=== PATIENT | female | born 1945 | race Caucasian/White ===

== ENCOUNTER 2024-08-07 08:49 | Outpatient (OUT) | payer MEDICARE, OTHER, SELFPAY ==
--- NOTE | 2024-08-07 09:00 | RT_ITS ---
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 Findings were considered accurate and reproducible. Both pre- and post-bronchodilator values utilized for spirometry. Spirometry (based on pre-bronchodilator values): -FEV1/FVC: Normal @ 90% -FEV1: Normal @ 92% -FVC: Mildly reduced @ 76% -There is no significant bronchodilator response. Lung volumes by plethysmography: -RV: Reduced @ 53% -TLC: Moderately reduced @ 67% Diffusion capacity: -DLCO: Moderate reduction @ 62% when corrected for Hb 14.4g/dL Impressions: -Mild restrictive pattern in spirometry, confirmed with moderate reduction of TLC. Moderate diffusion impairment. Overall study is compatible with pulmonary fibrosis. Clinical correlation required. Electronically Signed On 08-07-2024 17:52:58 EDT by Fam Fulton
[2024-08-07 09:05] LABS: Hemoglobin 14.4 g/dL (12.0-16.0)
[2024-08-07] MEDS: ALBUTEROL SULFATE 2.5 MG/3 ML VIAL NEB IH (09:22)
--- NOTE | 2024-08-07 09:50 | CT_ITS ---
The [address] [address] Patient Name: JAVID HERRERA MRN: [id number] date: 1945 Sex: F Assigned Patient Location: CARD Current Patient Location: CARD Accession/Order Number: [id number] Exam Date: 08/07/2024 14:47 Report Date: 08/07/2024 14:53 At the request of: SILVERIO WERNER DO Procedure: CT chest high res CT CHEST WITHOUT IV CONTRAST: High-resolution protocol. CLINICAL HISTORY: Pulmonary Fibrosis, Bronchiectasis COMPARISON: CT chest 09/19/2017. TECHNIQUE: Spiral images were obtained through the chest without IV contrast. High-resolution protocol was utilized with both supine and prone imaging. This CT exam was performed using one or more following dose reduction techniques: Automated exposure control, adjustment of the mA and/or kV according to patient size, or use of iterative reconstruction technique. FINDINGS: Mediastinum:Thoracic aorta appears normal in caliber. Pulmonary trunk appears dilated at 4 cm. No pericardial effusion. The lymphadenopathy. The esophagus is grossly unremarkable. Lungs:Diffuse fibrotic changes with bronchiectasis involving the lower lobes. No new consolidation pneumothorax or pleural effusion. Trachea and distal airways appear patent. No suspicious lung nodule or mass. Abd:Cirrhotic appearing liver. Liver granuloma. No acute findings. Soft tissues/Bones: No acute findings. Osseous structures demonstrate degenerative change. CT/CT chest high res IMPRESSION: Diffuse fibrotic changes with bronchiectasis involving the lower lobe which have mildly progressed from the 2018 study. No acute process is seen. Dilatation of the pulmonary trunk suggesting underlying pulmonary hypertension. Impression dictated by: Gavin Parkinson Jr., D.O.08/07/2024 2:53 PM Dictation Location: [facility] Electronically authenticated by: [id number] Y Date: 08/07/2024 14:53
== END 2024-08-07 08:50 | disposition home or self-care (01) ==
LOC: CARD 08:50
PROVIDERS: PCP Nurse Practitioner Family; Visit Provider Internal Medicine
DX: J84.10 Pulmonary fibrosis, unspecified (principal); J47.9 Bronchiectasis, uncomplicated
CPT/HCPCS: 36415; 71250; 85018; 94060; 94726; 94729